=== PATIENT | female | born 1985 | race Caucasian/White ===

== ENCOUNTER 2017-12-27 19:40 | Inpatient (IN) | payer MEDICAID ==
[~2017-12-27] VITALS: Ht 160 cm; Wt 83.5 kg
[2017-12-27] MEDS ORDERED: PNV91TAB10 PO (20:33)
[2017-12-27] MEDS ORDERED: FOLI0.4T40 PO (20:33)
[2017-12-27 21:03] VITALS: BP 101/55
[2017-12-27 21:54] LABS: APPEARANCE,URINE CLEAR (CLEAR); BILIRUBIN,URINE NEGATIVE (NEGATIVE); BLOOD, URINE NEGATIVE (NEGATIVE); COLOR,URINE YELLOW (YELLOW); LEUKOCYTE ESTERASE ,URINE NEGATIVE (NEGATIVE); NITRITE, URINE NEGATIVE (NEGATIVE); PH,URINE 6.5 (5.0-9.0); UGLUCOSE NEGATIVE (NEGATIVE)
[2017-12-27 22:01] LABS: RBC,URINE 0-5 (RARE) /HPF (0-5); WBC,URINE 0-5 (RARE) /HPF (0-5)
== END 2017-12-27 22:37 | disposition home or self-care (01) | DRG 566 ==
LOC: MLD 19:40
PROVIDERS: ADMIT Obstetrics & Gynecology; ATTEND Obstetrics & Gynecology
DX: O46.93 Antepartum hemorrhage, unspecified, third trimester (principal); Z3A.28 28 weeks gestation of pregnancy
CPT/HCPCS: 76815; 81001; C1758; Q0092